=== PATIENT | female | born 1965 | race Caucasian/White ===

== ENCOUNTER 2017-02-06 11:27 | Emergency (ER) | payer MEDICAID ==
--- NOTE | 2017-02-06 12:36 | XRAY Preliminary Report ---
Exam: XR Knee 4 View RT IMPRESSION: Mild degenerative arthritis in the medial compartment with a moderate amount of joint eff usion. [facility] SITE ID: [id number]
--- NOTE | 2017-02-06 12:39 | XRAY Report ---
EXAM: RIGHT KNEE RADIOGRAPHY EXAM DATE: 02/06/2017 12:01 PM. CLINICAL HISTORY: Pain in knee after kneeling several days ago. COMPARISON: None. TECHNIQUE: 3 views. FINDINGS: Bones: No fractures or bone lesions. Joints: There is mild diminishment of joint space in the medial compartment with moderate amount of e ffusion. No dislocation. Soft Tissues: No soft tissue swelling or calcification. IMPRESSION: Mild degenerative arthritis in the medial compartment with a moderate amount of joint eff usion. [facility] Referring Provider Line: [phone] SITE ID: [id number]
--- NOTE | 2017-02-06 12:41 | ED Physician Documentation ---
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 Has had pain on ROM and feeling of knee being tight/painful, with swelling of the knee. Hurts with walking.). No: Fall, Twist Where injury occurred: Home Associated symptoms: Swelling. No: Weakness, Numbness Contributing factors: No: Anticoagulated, Prior ortho surgery Similar symptoms before: No: Diagnosis, Has not had sx before Review of Systems Constitutional: denies: Fever, Chills Cardiac: denies: Chest pain / pressure Respiratory: denies: Dyspnea, Cough GI: denies: Abdominal Pain, Nausea, Vomiting, Diarrhea Skin: denies: Abrasion (s), Laceration (s) Neurologic: denies: Focal weakness, Numbness PD PAST MEDICAL HISTORY - Past Medical History Cardiovascular: Hypertension Other Past Medical History: hypothyroid - Past Surgical History Past Surgical History: Yes - Present Medications Home Medications: Ambulatory Orders Medication Instructions Recorded Confirmed HYDROcod/ACETAM 5/325 [[place] 5/325] 1 tab PO Q6H PRN #20 tablet 02/06/17 Htn Med 1 tab PO DAILY 02/06/17 Levothyroxine [Synthroid] 25 mcg PO DAILY 02/06/17 02/06/17 Naproxen 375 mg PO BID #20 tablet 02/06/17 - Allergies Allergies/Adverse Reactions: Allergies Allergy/AdvReac Type Severity Reaction Status Date / Time No Known Drug Allergies Allergy Verified 02/06/17 11:34 - Social History Does the pt smoke?: No Smoking Status: Never smoker PD ED PE NORMAL - Vitals Vital signs reviewed: Yes - General General: Alert and oriented X 3, No acute distress, Well developed/nourished - Derm Derm: Normal color, Warm and dry - Extremities Extremities: Other (right knee with mild to moderate effusion. Tender medially and posteriorly, No noted laxity on ligament testing but it did hurt for the exa.) - Neuro Neuro: Alert and oriented X 3, No motor deficit, No sensory deficit Results - Vitals Vitals: Vital Signs - 24 hr 02/06/17 02/06/17 11:32 13:32 Temperature 36.5 C 36.7 C Heart Rate 82 75 Respiratory 18 20 Rate Blood Pressure 148/94 H 168/88 H O2 Saturation 98 99 Oxygen O2 Source Room air - Rads (name of study) knee Radiology: Prelim report reviewed (no fractures, some medial arthritic changes. Effusion noted. ) PD MEDICAL DECISION MAKING - ED course Complexity details: considered differential (her pain acts like meniscal contusion or inflammation. No clicking/popping. 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 consultant Departure - Departure Disposition: 01 Home, Self Care Clinical Impression: Knee pain, acute Qualifiers: Laterality: right Qualified Code(s): M25.561 - Pain in right knee Acute meniscal injury of right knee Qualifiers: Encounter type: initial encounter Qualified Code(s): S83.8X1A - Sprain of other specified parts of right knee, initial encounter Condition: Stable Record reviewed to determine appropriate education?: Yes Instructions: ED Meniscal Injury Knee Poss Follow-Up: Tami Murillo MD [Primary Care Provider] - Long Vogt MD [Provider Admit Priv/Credential] - Prescriptions: Naproxen 375 mg PO BID #20 tablet HYDROcod/ACETAM 5/325 [Homeworth 5/325] 1 tab PO Q6H PRN #20 tablet PRN Reason: Pain Print Language: Malian Comments: Use the knee brace when walking; crutches if needed to take some of the weight off the knee for comfort. Naproxen twice daily for a week. Add Tylenol or Hydrocodone as needed for pain. Follow up with Dr. Murillo or Orthopedics (Dr. Vogt) in about a week, call tomorrow for an appointment. Discharge Date/Time: 02/06/17 13:32
[2017-02-06] MEDS ORDERED: NAPROXEN 250 MG TABLET PO STA (13:07)
[2017-02-06] MEDS ORDERED: HYDROcod/ACETAM 5/325 MG TABLET PO STA (13:07)
[2017-02-06] MEDS ORDERED: HYDROcod/ACETAM 5/325 MG TABLET ONE (13:10)
[2017-02-06] MEDS ORDERED: NAPROXEN 250 MG TABLET PO ONE (13:10)
[2017-02-06 13:36] VITALS: BP 168/88
== END 2017-02-06 13:32 | disposition home or self-care (01) ==
LOC: ED 11:27
DX: S83.8X1A Sprain of other specified parts of right knee, initial encounter (principal); X58.XXXA Exposure to other specified factors, initial encounter; Y93.H2 Activity, gardening and landscaping; Y92.017 Garden or yard in single-family (private) house as the place of occurrence of the external cause; M25.561 Pain in right knee; I10 Essential (primary) hypertension; E03.9 Hypothyroidism, unspecified
CPT/HCPCS: 73564; 99283; A9270